=== PATIENT | male | born 1935 | race Caucasian/White ===

== ENCOUNTER 2016-06-09 09:10 | Emergency (ER) | payer OTHER ==
[2016-06-09] MEDS ORDERED: Sodium Chloride 0.9% 1,000 ML PRIMARY IV ONE ×2 (09:12→09:33)
[2016-06-09] MEDS ORDERED: ONDANSETRON 4 MG/2 ML VIAL IVP ONE (09:12)
[2016-06-09] MEDS ORDERED: MECLIZINE 25 MG CHEWABLE TABLET PO ONE (09:12)
--- NOTE | 2016-06-09 09:19 | EKG ---
[address] [address] Measurements Intervals [place] Rate: 79 P: 76 OK: 149 QRS: 66 QRSD: 154 T: 246 QT: 401 QTc: 436 Interpretive Statements SINUS RHYTHM LEFT BUNDLE BRANCH BLOCK Compared to ECG 01/19/2015 10:45:13 No significant changes Electronically Signed On 06-09-16 11:42:51 MDT by Luis Urena [id number]
--- NOTE | 2016-06-09 09:21 | PDOC ---
Syncope/Near-Syncope HPI - General Chief Complaint: Syncope / Near-Syncope Stated Complaint: dizzy Date Seen by Provider: 06/09/16 Time Seen by Provider: 09:10 Source: POSITIVE: Patient Exam Limitations: POSITIVE: No limitations Nurse's Notes Reviewed & Considered: Yes - History of Present Illness Initial Comments: This very pleasant 80-year-old male comes in today with a chief complaint of dizziness. Patient has three-day history of increasing dizziness today is the worst day. 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 I'll it work today he was having difficulty ambulating with episodes of near-syncope and having to sit down to prevent himself from falling. He denies any headache , fever chills or sweats, nausea vomiting or diarrhea, no chest pain or shortness of breath, no cough. He denies any hematuria or dysuria. He denies any rashes. Body Location Affected: REPORTS: Head Timing: REPORTS: Intermittent Duration: <1 week Severity: Severe Quality: REPORTS: Other (Dizziness) Context: REPORTS: Sitting, Standing, Activity Symptoms Prior to Episode: REPORTS: None Character of Event(s): REPORTS: Almost Passed Out Associated Symptoms: REPORTS: None (feels back to nml) Recently seen/treated/hospitalized: No Any Prior Injuries Related to Current Complaint?: No - Patient Home Medications Home Medications: Home Medications Terazosin HCl [Hytrin Cap] 5 mg PO DAILY cap 12/25/13 Fluticasone Propionate [Flonase] 50 mcg INASL BID #1 spr 03/19/14 Aspirin 81 mg PO DAILY tab 12/21/14 Atorvastatin Calcium 1 tab PO DAILY tab 12/21/14 Finasteride 5 mg PO DAILY tab 12/21/14 Metoprolol Succinate 0.5 tab PO DAILY tab 12/21/14 Saw/Vit E/Sod Korina/Lyc/Beta/Pyg [Prostate Health Caplet] 2 each PO QD tab Digoxin 1 tab PO QD tab 07/01/15 Levothyroxine Sodium 1 tab PO DAILY #30 tab 04/21/16 Lisinopril 2.5 mg PO DAILY 06/09/16 Omeprazole 20 mg PO DAILY 06/09/16 - Patient Allergies Allergies/Adverse Reactions: Allergies Allergy/AdvReac Type Severity Reaction Status Date / Time No Known Drug Allergies Allergy NO KNOWN Verified 06/09/16 09:12 ALLERGIES Past Medical History - heen HEENT History: Cataracts Cardiovascular History: Hyperlipidemia Respiratory History: Denies History Gastrointestinal History: Denies History Additional Genitourinary History: ENLARGED PROSTATE/ BPH/ Endocrine History: Hypothyroidism Musculoskeletal History: Back Pain Prosthesis or Implant: No Neurological History: Denies History Blood Disorders: Denies History Psychiatric History: Depression History of Sexually Transmitted Diseases: No History of MDRO: No History of Other Communicable Diseases: No Alcohol Use: Occasionally Substance Use Type: None Previous Surgical History: No Type / Date of Surgery: CATARACT Anesthesia Reactions: No Malignant Hyperthermia: No Significant Family History: No pertinent family hx ROS - Limitations ROS Limitations: No Limitations Constitution: REPORTS: Denies Symptoms Cardiovascular: REPORTS: Denies Cardiac Symptoms Neurological: REPORTS: Dizziness, Difficulty Walking Gastrointestinal: REPORTS: Denies GI Symptoms Endocrine: REPORTS: Denies Symptoms Musculoskeletal: REPORTS: Denies MS Symptoms Genitourinary: REPORTS: Denies Symptoms Eyes: REPORTS: Denies Symptoms ENT: REPORTS: Denies Symptoms Skin: REPORTS: Denies Skin Symptoms Lympathic: REPORTS: Denies Lympathic Symptoms Immunologic: POSITIVE: Denies Symptoms Psychiatric: POSITIVE: Denies Psych Symptoms Syncope / Near-Syncope Exam - General Appearance General Appearance: POSITIVE: Alert, Cooperative, No Acute Distress, No Evidence of Trauma - HEENT HEENT: POSITIVE: Head Inspection Nml, Eyes Inspection Nml, Ears Inspection Nml, Nose Inspection Nml, Oral/Dental Inspect. Nml, Pharynx Inspect. Nml, PERRL, EOMI , Dry Mucous Membranes - Pupil Size Pupil Size: 4 mm: Bilateral - Neck / Back Neck/Back: POSITIVE: Supple, Non-Tender - Respiratory Respiratory: POSITIVE: No Respiratoy Distress, Breath Sounds Normal, No Pleuritic Chest Pain - Cardiovascular Cardiovascular: POSITIVE: Regular Rate and Rhythm, Heart Sounds Normal - Abdomen Abdomen: Soft: (All Quadrants), Normal Bowel Sounds: (All Quadrants), Denies Tenderness: (All Quadrants) - Skin Skin: POSITIVE: Intact, Normal For Race, Warm, Dry, No Rash - Extremities Extremity: Non-Tender: (All Extremities), Normal ROM: (All Extremities), Normal Inspection: (All Extremities) - Neuro / Psych Higher Functions: POSITIVE: Oriented to Person, Oriented to Place, Oriented to Time, Normal Speech, Normal Cognition, Appropriate Mood, Appropriate Affect Cranial Nerves: POSITIVE: Normal As Tested, No Evidence of Acute CVA Cerebellar: POSITIVE: Normal As Tested Syncope/Near-Syncope Progress - Results Reviewed by me Xrays/CTs/US Reviewed by me: Yes Discussed with Radiologist: Yes Lab Results Reviewed: Yes Lab Results:: Laboratory Results 06/09/16 Range/Units 09:39 WBC 5.82 (4.8-10.8) 10^3/uL RBC 4.48 L (4.70-6.10) 10^6/uL Hgb 13.6 L (14.0-18.0) g/dL Hct 41.1 L (42.0-52.0) % MCV 91.7 H (80-90) FL MCH 30.4 (27-31) PG MCHC 33.1 (33-37) g/dL RDW Std Deviation 48.2 (39-50) fL RDW Coeff of Jorge Luis 14.6 H (11.5-14.5) % Plt Count 198 (140-350) 10*3/uL MPV 9.5 (7.4-12.2) FL Immature Gran % (Auto) 0.2 (0-5) % Neut % (Auto) 68.7 (50-80) % Lymph % (Auto) 21.3 (10-50) % [place] % (Auto) 8.1 (5-15) % Eos % (Auto) 1.0 (0-8) % Baso % (Auto) 0.7 (0-1) % Immature Gran # (Auto) 0.01 10*3/UL Neut # (Auto) 4.00 10*3/UL Lymph # (Auto) 1.24 10*3/uL [place] # (Auto) 0.47 (0.3-0.8) 10*3/UL Eos # (Auto) 0.06 10*3/UL Baso # (Auto) 0.04 10*3/UL WBC Morphology Comment Normal morphology (NORM) Plt Morphology Comment Normal morphology (NORM) RBC Morph Comment Normal morphology (NORM) Sodium 140 (135-145) meq/L Potassium 4.7 (3.8-5.2) meq/L Chloride 107 (98-112) meq/L Carbon Dioxide 19 L (23-33) meq/L Anion Gap 14 (5-20) BUN 29 H (7-22) mg/dL Creatinine 1.5 (0.70-1.50) mg/dL Estimated GFR (>60 ml/min/1.73m(2)) BUN/Creatinine Ratio 19.33 (6-20) Glucose 113 H (78-110) mg/dL Calculated Osmolality 296.0 H (267-292) mOsm/kg Calcium 9.3 (8.7-10.7) mg/dL Magnesium 2.0 (1.6-2.4) mg/dL Total Bilirubin 0.9 (0.3-1.2) mg/dL AST 35 (21-57) IU/L ALT 34 (21-72) IU/L Alkaline Phosphatase 103 (38-126) IU/L Total Protein 6.9 (6.1-8.0) g/dL Albumin 4.2 (3.5-4.8) g/dL Globulin 2.7 (2.50-4.10) g/dL Albumin/Globulin Ratio 1.50 (1.3-2.0) mg/g TSH 0.808 (0.2700-4.2000) uIU/mL Free T4 1.82 H (0.93-1.71) ng/dL EKG Interpretation:: POSITIVE: Normal Rate, Abnormal EKG, Unchanged, Previous EKG Reviewed - Patient's Progress Pain Medication Addressed: POSITIVE: Not Applicable Re-examine Time: 11:11 Status: POSITIVE: Improved CVA/Syncope Quality Measure Initiative: POSITIVE: EKG, NIH Stroke Scale (Stroke scale score is 0) - Consult Counseled: POSITIVE: Patient, Family, RE: Lab Results, RE: Radiology Results, RE : DX, RE: Need for F/U Patient Care Time - Estimated PCT Patient Care Time (In Minutes): 30 Vital Signs - Recent Vital Signs Vital Signs: Vital Signs (Last 8 hours) Temp Pulse Pulse Pulse Resp BP BP 06/09/16 11:08 73 104/70 06/09/16 09:27 87 101 H 83/54 06/09/16 09:11 97.3 F 103 H 18 96/54 BP BP Pulse Ox 06/09/16 11:08 93 06/09/16 09:27 61/43 70/48 06/09/16 09:11 93 - VS Reviewed Vital Signs Reviewed: Yes Discharge Clinical Impression: Syncope, Dehydration Discharge Disposition: Discharged to Home Condition: Fair Patient Instructions Given at Discharge: Dehydration (ED), Syncope (ED)
[2016-06-09 09:24] VITALS: RESP 18; TEMP 97.3
[2016-06-09 09:43] LABS: BASOPHILS # (AUTO) 0.04 10*3/UL; BASOPHILS % (AUTO) 0.7 % (0-1); EOSINOPHILS # (AUTO) 0.06 10*3/UL; HEMATOCRIT 41.1 % (42.0-52.0); HEMOGLOBIN 13.6 g/dL (14.0-18.0); LYMPHOCYTES # (AUTO) 1.24 10*3/uL; MEAN CORPUSCULAR HEMOGLOBIN 30.4 PG (27-31); MEAN CORPUSCULAR HGB CONC 33.1 g/dL (33-37); MEAN CORPUSCULAR VOLUME 91.7 FL (80-90); MEAN PLATELET VOLUME 9.5 FL (7.4-12.2); MONOCYTES # (AUTO) 0.47 10*3/UL (0.3-0.8); MONOCYTES % (AUTO) 8.1 % (5-15); NEUTROPHILS % (AUTO) 68.7 % (50-80); PLATELET MORPHOLOGY COMMENT NORMAL MORPHOLOGY (NORM); RBC MORPHOLOGY COMMENT NORMAL MORPHOLOGY (NORM); RED BLOOD COUNT 4.48 10^6/uL (4.70-6.10); WBC MORPHOLOGY COMMENT NORMAL MORPHOLOGY (NORM)
[2016-06-09 09:55] LABS: BUN/CREATININE RATIO 19.33 (6-20); CALCIUM 9.3 mg/dL (8.7-10.7); SERUM ALBUMIN 4.2 g/dL (3.5-4.8)
[2016-06-09 10:28] LABS: FREE T4 (FREE THYROXINE) 1.82 ng/dL (0.93-1.71)
--- NOTE | 2016-06-09 11:07 | DI ---
MRI BRAIN W/O CN,06/09/2016 9:29 AM: Clinical History: Headache, dizziness and slurred speech. Previous Exam: None at this facility. Findings: Multiplanar MR images are obtained through the brain without contrast, and demonstrate diffuse age-re lated volume loss. There is no mass, hemorrhage or midline shift. There is no abnormally restricted diffusion. There are a few scattered areas of increased FLAIR signal within the periventricular white matter. The major vascular flow voids are unremarkable. There is rightward deviation of the bony nasal septum . Intraorbital structures are unremarkable. The paranasal sinuses are unremarkable. Impression: 1. No evidence of acute ischemia. 2. Mild diffuse age-related volume loss.
[2016-06-09 11:55] LABS: BILIRUBIN,URINE NEGATIVE (NEG); COLOR,URINE YELLOW; GLUCOSE, URINE (UA) NEGATIVE (NEG); NITRATE,URINE NEGATIVE (NEG); OCCULT BLOOD,URINE NEGATIVE (NEG); PROTEIN,URINE NEGATIVE (NEG); UROBILINOGEN,URINE 0.2 EU/dL (0.2)
--- NOTE | 2016-06-09 12:00 | DI ---
MRI MRA NECK W/O CN,06/09/2016 9:29 AM: Clinical History: Dizziness Previous Exam: None at this facility. Findings: Multiplanar MR images are obtained through the neck following a 2-D [id number] protocol, and demo nstrate normal-appearing common carotid arteries. The carotid bulbs demonstrates some plaque formatio n with less than 50% stenosis bilaterally involving the proximal internal carotid arteries. The vertebral arteries are normal bilaterally. The external carotid arteries are also grossly normal. The aortic arch is normal. Impression: Approximately 50% stenosis of the proximal internal carotid arteries at the level of the carotid bulb s bilaterally. There is no evidence of acute ischemia within the brain to suggest any acute embolism.
[2016-06-09 12:10] LABS: CLARITY,URINE CLEAR (CLEAR)
[2016-06-09 12:11] LABS: URINE SAMPLE TYPE CLEAN CATCH URINE
== END 2016-06-09 11:50 | disposition home or self-care (01) ==
LOC: ER 09:10
DX: E86.0 Dehydration (principal); R55 Syncope and collapse; R42 Dizziness and giddiness
CPT/HCPCS: 70547; 70551; 80053; 81003; 83735; 84439; 84443; 85025; 93005; 93010; 96374; 99284; J2405; J7030

== ENCOUNTER → 2016-06-15 | Outpatient (CLI) | payer OTHER | LOC: MMPC 09:00 | PROVIDERS: ATTEND Family Medicine | DX: R42 Dizziness and giddiness (principal); K21.9 Gastro-esophageal reflux disease without esophagitis; I25.10 Atherosclerotic heart disease of native coronary artery without angina pectoris | CPT/HCPCS: 99213; G0463 ==

== ENCOUNTER → 2016-10-16 | Outpatient (CLI) | payer OTHER | LOC: LAB 08:03 | PROVIDERS: ATTEND Urology | DX: C61 Malignant neoplasm of prostate (principal) | CPT/HCPCS: 36415; 84153 ==

== ENCOUNTER 2018-08-15 10:41 | Observation (INO) ==
[2018-08-15] MEDS ORDERED: ONDANSETRON 4 MG/2 ML VIAL IVP ONE (11:07)
[2018-08-15] MEDS ORDERED: Lactated Ringers 1,000 ML PRIMARY IV ONE ×2 (11:07→11:08)
--- NOTE | 2018-08-15 11:10 | PDOC ---
Abdomen/Flank HPI - General Chief Complaint: Abdomen Pain Stated Complaint: abd pain Date Seen by Provider: 08/15/18 Time Seen by Provider: 10:55 Source: POSITIVE: Patient, Spouse Exam Limitations: POSITIVE: No limitations Nurse's Notes Reviewed & Considered: Yes - Record Incomplete - History of Present Illness Initial Comments: 82 yo male with complaint of dizziness since yesterday. Also reports nausea, vomiting and diarrhea. No vomiting today just nauseated. States had about 2 episodes of emesis and diarrhea in past 24 hours. Denies blood in stool/vomitus. Denies CP. States he has been having increase SOB lately. Denies fevers/chills. Denies rhinorrhea/congestion/earache/sore throat. - Patient Home Medications Home Medications: Home Medications Terazosin HCl [Hytrin Cap] 5 mg PO DAILY cap 12/25/13 Fluticasone Propionate [Flonase] 50 mcg INASL BID #1 spr 03/19/14 Aspirin 81 mg PO DAILY tab 12/21/14 Atorvastatin Calcium 1 tab PO DAILY tab 12/21/14 Finasteride 5 mg PO DAILY tab 12/21/14 Metoprolol Succinate 0.5 tab PO DAILY tab 12/21/14 Saw/Vit E/Sod Korina/Lyc/Beta/Pyg [Prostate Health Caplet] 2 ea PO QD tab 12/21/14 Digoxin 1 tab PO QD tab 07/01/15 omeprazole 20 mg capsule,delayed release 20 mg PO DAILY #90 cap 07/23/17 ipratropium bromide 0.03 % nasal spray See Rx Instructions .ROUTE .COMPLEX #30 milliliter 03/29/18 lactobacillus combination no.9 4 billion cell capsule 4,000 mmu cells PO QDAY #30 cap 04/10/18 levothyroxine 88 mcg tablet 88 mcg PO DAILY #90 tab 08/06/18 lisinopril 2.5 mg tablet 2.5 mg PO DAILY #90 tab 08/06/18 - Patient Allergies Allergies/Adverse Reactions: Allergies Allergy/AdvReac Type Severity Reaction Status Date / Time No Known Drug Allergies Allergy NO KNOWN Verified 08/15/18 09:46 ALLERGIES Past Medical History - heen HEENT History: Cataracts Cardiovascular History: CAD, Hyperlipidemia, Other (please comment) Additional Cardiovasular History: PATIENT HAD A 3 WAY BYPASS 4 YEARS AGO Respiratory History: Denies History Gastrointestinal History: Denies History Additional Genitourinary History: ENLARGED PROSTATE/ BPH/Prostrate CA Endocrine History: Hypothyroidism Musculoskeletal History: Back Pain Prosthesis or Implant: No Neurological History: Denies History Blood Disorders: Denies History Psychiatric History: Depression History of Sexually Transmitted Diseases: No Cancer Treatment / Date(s) of Treatment: FEMALE HORMONE In Past Year Been Physically Harmed or Verbally Threatened: No History of MDRO: No History of Other Communicable Diseases: No Tobacco Use: Never Smoker Alcohol Use: Occasionally In the Past 12 Months, Have Used or Abuse Any Substance: None Previous Surgical History: No Type / Date of Surgery: CATARACT Anesthesia Reactions: No Malignant Hyperthermia: No Significant Family History: No pertinent family hx ROS - Limitations ROS Limitations: No Limitations Constitution: REPORTS: Chills. DENIES: Fever Cardiovascular: REPORTS: Denies Cardiac Symptoms Respiratory: REPORTS: Denies Resp Symptoms Neurological: REPORTS: Headache, Dizziness. DENIES: Numbness, Fainting Gastrointestinal: REPORTS: Abdominal Pain, Nausea, Vomitting, Diarrhea Endocrine: REPORTS: Fatigue Musculoskeletal: REPORTS: Denies MS Symptoms Genitourinary: REPORTS: Denies Symptoms Eyes: REPORTS: Denies Symptoms ENT: REPORTS: Denies Symptoms Skin: REPORTS: Denies Skin Symptoms Lympathic: REPORTS: Denies Lympathic Symptoms Immunologic: POSITIVE: Denies Symptoms Psychiatric: POSITIVE: Denies Psych Symptoms Abdominal/Flank Pain PE - General Appearance General Appearance: POSITIVE: Alert, Cooperative, Mild Distress - HEENT HEENT: POSITIVE: Head Inspection Nml, Eyes Inspection Nml, Nose Inspection Nml, Oral/Dental Inspect. Nml, Pharynx Inspect. Nml, PERRL, EOMI, Dry Mucous Membranes - Neck Neck: POSITIVE: Normal Inspection, No Apparent Injury - Respiratory Respiratory: POSITIVE: No Respiratory Distress, Breath Sounds Normal, Chest Non- Tender - Cardiovascular Cardiovascular: POSITIVE: Regular Rate and Rhythm, Heart Sounds Normal, Equal Pulses, Strong Pulses Peripheral Pulses: Radial (R): 2+, Radial (L): 2+, Dorsalis-pedis (R): 2+, Dorsalis-pedis (L): 2+ - Chest Chest: POSITIVE: Non Tender. NEGATIVE: Ecchymosis, Abrasion, Laceration - Abdomen Abdomen: Soft: (All Quadrants), Normal Bowel Sounds: (All Quadrants), Denies Tenderness: (RLQ), (LLQ), No Splenomegaly: (All Quadrants), No Hepatomegaly: (All Quadrants), No Guarding: (All Quadrants), No Rebound: (All Quadrants), No Palpable Pulse: (All Quadrants), No Palpabale Mass: (All Quadrants), No Distention: (All Quadrants), Tenderness Noted: (RUQ), (LUQ) (epigastric) - Back Back: POSITIVE: Normal Inspection. NEGATIVE: CVA Tenderness (R), CVA Tenderness (L) - Skin Skin: POSITIVE: Intact, Normal For Race, Warm, Dry, No Rash - Extremities Extremity: Non-Tender: (All Extremities), Normal ROM: (All Extremities), Normal Inspection: (All Extremities) - Neurological Neurological: POSITIVE: Affect Apporpriate, Oriented X3, lapeler Normal As Tested, Motor Normal, Sensation Normal - Psychological Psychiatric: POSITIVE: Affect Appropriate, Mood Appropriate Abdomen Progress - Results Reviewed by me Xrays/CTs/US Reviewed by me: Yes Discussed with Radiologist: No Lab Results Reviewed by Me: Yes (lipase elevated at 530) CBC and BMP: 08/15/18 10:50 08/15/18 10:50 EKG Interpreted/Reviewed By Me:: Yes (EKG done in outpatient clinic) - Patient's Progress Pain Medication Addressed: POSITIVE: Not Applicable Re-Examine Comment: Patient was noted to be hypoxic into upper 70s while sleeping. He was placed on oxygen. Will obtain portable CXR due to acute hypoxia and earlier complaint of dyspnea. Re-Examine Comment: Patient feels better after two liters of fluid in regards to his dizziness but is still having pain. CT images show dilation of common bile duct as well as dilation of pancreatic duct. Lipase elevated. No stones seen on CT imaging. Will give small dose of morphine for pain. Re-Examine Comment: Discussed case with Dr. Sherman, hospitalist, who accepted the patient for admission. Patient will be admitted to medical floor in stable and unchanged condition. MDM / ED Course: 82 yo male presents with complaint of nausea, vomiting, diarrhea, abdominal pain and dizziness. IV line was established by nursing staff. Patient was found to be hypotensive and was given a bolus of LR. Orthostatic vital signs obtained and noted to be positive for blood pressure and symptoms. Will obtain serum labs, urine labs and CT of abdomen/pelvis. Patient Care Time - Estimated PCT Patient Care Time (In Minutes): 65 Vital Signs - Recent Vital Signs Vital Signs: Vital Signs (Last 8 hours) Temp Pulse Resp BP Pulse Ox 08/15/18 10:51 96.5 F L 87 18 71/57 95 - VS Reviewed Vital Signs Reviewed: Yes Discharge Clinical Impression: Abdominal pain, Nausea and vomiting, Diarrhea, Pancreatitis, acute, Dehydration, Hypotension due to hypovolemia, Orthostatic dizziness Discharge Disposition: Admit to Inpatient Condition: Fair Patient Problem(s) Reviewed: Yes Care Transferred To: Dr. Sherman Date Decision to Admit to Inpatient: 08/15/18 Time Decision to Admit to Inpatient: 13:01
[2018-08-15 11:12] LABS: BASOPHILS # (AUTO) 0.03 10*3/UL; BASOPHILS % (AUTO) 0.3 % (0-1); EOSINOPHILS # (AUTO) 0.05 10*3/UL; EOSINOPHILS % (AUTO) 0.5 % (0-8); Hemoglobin [HGB] 13.8 g/dL (14.0-18.0); LYMPHOCYTES # (AUTO) 3.11 10*3/uL; MEAN CORPUSCULAR HGB CONC 33.7 g/dL (33-37); MEAN CORPUSCULAR VOLUME 92.1 FL (80-90); MEAN PLATELET VOLUME 9.8 FL (7.4-12.2); MONOCYTES # (AUTO) 0.81 10*3/UL (0.3-0.8); MONOCYTES % (AUTO) 8.1 % (5-15); NEUTROPHILS # (AUTO) 5.96 10*3/UL; NEUTROPHILS % (AUTO) 59.7 % (50-80); RED BLOOD COUNT 4.45 10^6/uL (4.70-6.10)
[2018-08-15 11:13] LABS: PLATELET MORPHOLOGY COMMENT NORMAL MORPHOLOGY (NORM); RBC MORPHOLOGY COMMENT NORMAL MORPHOLOGY (NORM); WBC MORPHOLOGY COMMENT NORMAL MORPHOLOGY (NORM)
[2018-08-15 11:18] LABS: BLOOD UREA NITROGEN 26 mg/dL (7-22); LIPASE 530 IU/L (23-300); SERUM ALBUMIN 4.2 g/dL (3.5-4.8)
--- NOTE | 2018-08-15 12:05 | DI ---
AP CHEST X-RAY, 08/15/2018 11:26 AM : Clinical History: Low O2 saturation. Previous Exam: 08/19/2012. Comparison Exam: CT chest scan with contrast from 10/01/2017. Soft Tissues: No acute soft tissue abnormality. Status post CABG. Bones: Normal. Heart: Mild cardiomegaly with increased prominence of the right heart contour since the last exam. Th e azygos vein is dilated and the vascular pedicle with has increased. There is reversal of flow to th e upper lobes indicating pulmonary venous hypertension. Lungs: No infiltrates. Discoid atelectasis in the left costophrenic angle. Effusion(s): None. Mediastinum: The pulmonary outflow tract silhouette is more prominent than on the earlier chest x-ray but similar to the CT scan from 2018. The hilar vessels do not show definite pulmonary arterial hype rtension. Nodules: No pulmonary nodules. Readin. No acute infiltrate or effusion. 2. Increased vascular pedicle width with dilatation of of the azygos vein and increased prominence o f the lateral wall of the right ventricle suggest this patient may have right heart failure. The prio r CT scan showed marked tricuspid insufficiency. There is pulmonary venous hypertension without evide nce of interstitial or alveolar pulmonary edema.
--- NOTE | 2018-08-15 12:26 | DI ---
CT ABDOMEN SCAN WITH IV CONTRAST, 08/15/2018 11:07 AM : Clinical History: Abdominal pain. Nausea. Vomiting. Diarrhea. Previous Exam: 08/27/2017 IV Contrast: 55 mL of Ultravist 370. Oral Contrast: No oral contrast ordered. Rectal Contrast: No rectal contrast ordered. Lungs: No infiltrate or effusion. ON are present indicating bullous emphysema. Calcifications are pre sent in the aortic valve leaflets. Status post CABG. Liver: Normal. Gallbladder: Grossly normal. Proximal common bile duct is dilated at 8-9 mm. The distal common bile d uct in the head of the pancreas measures 5 mm. Adrenal Glands: Normal. Spleen: Mild splenomegaly. Pancreas: Normal appearing pancreas but there is dilatation of the pancreatic duct measuring 3 mm. No mass is seen in the head of the pancreas. Kidneys: Normal size, shape, position and contour. No hydronephrosis or hydroureter. No renal or uret eral calculi. Masses: None. Lymph Nodes: Normal. Ascites: No ascites. Free Air: None. Spine: Normal lower thoracic and lumbar spine. READIN. The liver and gallbladder appear normal but the common duct is dilated at 9 mm proximally and everett sures 5 mm in the head of the pancreas. The pancreas is normal but the pancreatic duct is mildly dila thom at 3 mm. These are new findings since the study from 08/27/2017. 2. Mild splenomegaly. CT PELVIS SCAN WITH IV CONTRAST, 08/15/2018 11:07 AM: Clinical History: See above. Previous Exam: 08/27/2017. Contrast: Same bolus used for CT scans of the abdomen. Masses: No masses or enhancing lesions. Ascites: None. Free Air: None. Lymph Nodes: No adenopathy. Appendix: Normal. Small Bowel: Normal small bowel, terminal ileum, and ileocecal valve. Colon: Normal. Colon is completely decompressed. No evidence of colitis or ischemic changes to the co valerie. Bladder: Normal. Hernias: None. Bony Pelvis: Normal sacrum, pelvic bones, and hips. READING: Normal CT scan of the pelvis with IV contrast.
[2018-08-15 14:17] LABS: BILIRUBIN,URINE NEGATIVE (NEG); CLARITY,URINE CLEAR (CLEAR); COLOR,URINE YELLOW (Y); GLUCOSE, URINE (UA) NEGATIVE (NEG); OCCULT BLOOD,URINE NEGATIVE (NEG); PH,URINE 5.5 (5.0-8.5); PROTEIN,URINE NEGATIVE (NEG); UROBILINOGEN,URINE 0.2 EU/dL (0.2)
[2018-08-15 14:24] LABS: RBC,URINE 0 /hpf; SQUAMOUS EPITHELIAL CELL,UR RARE; URINE SAMPLE TYPE CLEAN CATCH URINE; WBC,URINE 0-1
--- NOTE | 2018-08-15 15:07 | DI ---
GALLBLADDER AND LIVER ULTRASOUND, 08/15/2018 12:58 PM: Clinical History: Abdominal pain. Previous Exam: None at this facility. Technique: Right upper quadrant scanned in multiple projections with Color Doppler ultrasound. Liver Texture: Normal sonographic texture. Liver Size: Normal. 123 mm. Gallbladder: Moderately distended. Multiple 2 mm spherical echogenic foci are present in the dependen t portion of the gallbladder consistent with small gallstones or cholesterol flakes. Normally, these should pass readily through the sphincter of [place]. Normal gallbladder wall thickness. Negative Carmela y's sign. Common Bile Duct: 6 mm. In the limited areas of the common duct that was visible, no common duct ston e is seen. Pancreas: Normal head, neck, and proximal body. Right Kidney: Normal right kidney. IVC and Aorta: Normal IVC and mid and distal aorta. The proximal portion of the aorta is obscured by gas. READIN. Cholelithiasis. Small 2 mm bright echoes are visible in the gallbladder. Small cholesterol flakes cannot be excluded. They should theoretically pass through the common duct sphincter. There is no Mu rphy's sign. The common bile duct is dilated at 6 mm without evidence of a common duct stone. 2. The liver, right kidney, IVC, and limited views of the aorta and pancreas are normal.
[2018-08-15] MEDS ORDERED: ONDANSETRON 4 MG/2 ML VIAL IVP PRN (15:30)
[2018-08-15] MEDS ORDERED: LIDOCAINE W/ SODIUM BICARB 0.5 ML SYR SUBD PRN (15:30)
--- NOTE | 2018-08-15 15:35 | PDOC ---
HPI - History of Present Illness Date of Service: 08/15/18 Time of Service: 15:30 Chief Complaint: Nausea, vomiting and diarrhea for a week. dizziness for a week and also abdominal pain. History of Present Illness: This is an 82 years old male with medical history significant for history of coronary artery disease with previous CABG, history of systolic dysfunction ejection fraction 40%, history of prostate cancer on hormonal treatment said he didn't feel well last week after he ate some noodles and started to have vomiting, diarrhea and epigastric pain. The pain was constant for few days. Rated about 5-6 out of 10. He vomited yesterday had also loose stool yesterday today went to the urgent care as he's been feeling dizzy. From the urgent clinic was sent to the ER. Was noted that he was hypotensive in the ER was given some fluid and was admitted. Did have a CT of the abdomen which showed dilated common bile duct ultrasound of the abdomen showed cholelithiasis duct about 6 mm. Currently feels better no pain no nausea. Past Medical History Medical History: 1. History of hypothyroidism. 2. History of coronary artery disease with previous CABG in 2017. 3. History of systolic dysfunction ejection fraction 35-40%. 4. History of prostate cancer on hormonal treatment. 5. History of GERD Surgical History: 1. History of CABG. 2. History of inguinal hernia repair Family History: Reviewed an Not Pertinent Past Social History: Doesn't smoke, doesn't drink no drugs. Tobacco Use: Never Smoker In the Past 12 Months, Have Used or Abuse Any of the Following Substance: None Medication / Allergies Home Medications: Home Medications Medication Instructions Recorded Confirmed Terazosin HCl [Hytrin Cap] 5 mg PO DAILY cap 12/25/13 08/15/18 Fluticasone Propionate [Flonase] 50 mcg INASL BID #1 spr 03/19/14 08/15/18 Aspirin 81 mg PO DAILY tab 12/21/14 08/15/18 Atorvastatin Calcium 1 tab PO DAILY tab 12/21/14 08/15/18 Finasteride 5 mg PO DAILY tab 12/21/14 08/15/18 Metoprolol Succinate 0.5 tab PO DAILY tab 12/21/14 08/15/18 Saw/Vit E/Sod [place]/Lyc/Beta/Pyg 2 ea PO QD tab 12/21/14 08/15/18 [Prostate Health Caplet] Digoxin 1 tab PO QD tab 07/01/15 08/15/18 omeprazole 20 mg capsule,delayed 20 mg PO DAILY #90 cap 07/23/17 08/15/18 release ipratropium bromide 0.03 % nasal See Rx Instructions .ROUTE 03/29/18 08/15/18 spray .COMPLEX #30 milliliter lactobacillus combination no.9 4 4,000 mmu cells PO QDAY #30 cap 04/10/18 08/15/18 billion cell capsule levothyroxine 88 mcg tablet 88 mcg PO DAILY #90 tab 08/06/18 08/15/18 lisinopril 2.5 mg tablet 2.5 mg PO DAILY #90 tab 08/06/18 08/15/18 Allergies/Adverse Reactions: Allergies Allergy/AdvReac Type Severity Reaction Status Date / Time No Known Drug Allergies Allergy NO KNOWN Verified 08/15/18 09:46 ALLERGIES Review of Systems - Review of Systems All Systems: Reviewed & No Additional Complaints Except as Stated Exam - Vitals Vital Signs: Vital Signs Temperature 97.4 F Temperature Source Oral Pulse Rate [Pulse Oximeter] 70 Pulse Rate [Standing] 87 Pulse Rate [Sitting] 86 Pulse Rate [Lying] 79 Respiratory Rate 16 Blood Pressure [Standing] 76/54 Blood Pressure [Sitting] 105/55 Blood Pressure [Lying] 112/55 Blood Pressure [Left Arm] 126/46 Pulse Ox 100 Oxygen Flow Rate 1 Oxygen Delivery Method Nasal Cannula Height 5 ft 5 in Weight 129 lb 4 oz - General General Appearance: No Acute Distress, Cooperative - Head Head Exam: Normal Inspection - Eye Eye Exam: POSITIVE: Normal Appearance - ENT ENT Exam: POSITIVE: Normal Exam - Neck Neck Exam: Normal Inspection - Respiratory Respiratory Exam: POSITIVE: Clear to Auscultation - Bilaterally - Cardiovascular Cardiovascular Exam: POSITIVE: RRR - GI/Abdominal GI/Abdominal Exam: POSITIVE: Normal Bowel Sounds, Non Tender, Non Distended, Soft, No Organomegaly - Rectal Rectal Exam: POSITIVE: Deferred - External Exam: POSITIVE: Deferred - Extremities Extremities Exam: POSITIVE: Normal Inspection - Back Back Exam: POSITIVE: Normal Inspection - Neurological Neurological Exam: POSITIVE: Alert, Oriented x 3, CN II-XII Intact, No Facial Droop, Speech Intact / Clear, Moves All Extremities Equally - Psychiatric Psychiatric Exam: POSITIVE: Normal Affect Results - Labs CBC and BMP: 08/15/18 10:50 08/15/18 10:50 - Imaging Status: Report Reviewed by Me (CT abdomen 1. The liver and gallbladder appear normal but the common duct is dilated at 9 mm proximally and measures 5 mm in the head of the pancreas. The pancreas is normal but the pancreatic duct is mildly dilated at 3 mm. These are new findings since the study from 08/27/2017. 2. Mild splenomegaly. Chest X ray 1. No acute infiltrate or effusion. 2. Increased vascular pedicle width with dilatation of of the azygos vein and increased prominence of the lateral wall of the right ventricle suggest this patient may have right heart failure. The prior CT scan showed marked tricuspid insufficiency. There is pulmonary venous hypertension without evidence of interstitial or alveolar pulmonary edema.) Assessment and Plan - Patient Problems (1) Dehydration Current Visit: Yes Status: Acute Comment: he is mildly dehydrated will give him some fluids cautiously and repeat his labs in the morning. We'll watch him overnight. Code(s): E86.0 - Dehydration (2) Elevated lipase Current Visit: Yes Status: Acute Comment: either there is a pancreatitis or this is secondary to gastroenteritis. There is a evidence of some gallstones on the ultrasound. I think will repeat labs in am. will put him on law fat diet now. Code(s): R74.8 - Abnormal levels of other serum enzymes (3) Benign prostatic hyperplasia Current Visit: No Status: Acute Onset Date: 07/05/11 Comment: Continue finasteride will hold terazosin tonight. Code(s): N40.0 - Benign prostatic hyperplasia without lower urinary tract symptoms (4) Coronary artery disease involving [place] coronary artery of [place] heart without angina pectoris Current Visit: No Status: Acute Onset Date: 06/15/16 Comment: will continue with aspirin, betablocker and lipitor. will hold lisinopril for now. Code(s): I25.10 - Atherosclerotic heart disease of [place] coronary artery without angina pectoris
[2018-08-15] MEDS: Lactated Ringers 1,000 ML PRIMARY IV SCH (16:03)
[2018-08-15] MEDS ORDERED: ATORVASTATIN 40 MG TABLET PO SCH (21:00)
[2018-08-15] MEDS: FLUTICASONE PROPIONATE 16 GRAM (120 SPRAYS / BOTTLE) ENOS SCH (21:45)
[2018-08-16 04:06] VITALS: O2SAT 92
[2018-08-16 04:54] LABS: BASOPHILS # (AUTO) 0.02 10*3/UL; BASOPHILS % (AUTO) 0.3 % (0-1); EOSINOPHILS # (AUTO) 0.15 10*3/UL; EOSINOPHILS % (AUTO) 2.2 % (0-8); Hematocrit [HCT] 36.6 % (42.0-52.0); Hemoglobin [HGB] 11.9 g/dL (14.0-18.0); LYMPHOCYTES # (AUTO) 3.51 10*3/uL; MEAN CORPUSCULAR HEMOGLOBIN 30.6 PG (27-31); MEAN CORPUSCULAR HGB CONC 32.5 g/dL (33-37); MEAN CORPUSCULAR VOLUME 94.1 FL (80-90); MEAN PLATELET VOLUME 9.6 FL (7.4-12.2); MONOCYTES # (AUTO) 0.52 10*3/UL (0.3-0.8); MONOCYTES % (AUTO) 7.6 % (5-15); NEUTROPHILS # (AUTO) 2.62 10*3/UL; NEUTROPHILS % (AUTO) 38.4 % (50-80); RED BLOOD COUNT 3.89 10^6/uL (4.70-6.10)
[2018-08-16 05:22] LABS: BLOOD UREA NITROGEN 20 mg/dL (7-22); BUN/CREATININE RATIO 22.22 (6-20); LIPASE 532 IU/L (23-300)
[2018-08-16] MEDS ORDERED: LEVOTHYROXINE 88 MCG TABLET PO SCH (05:30)
[2018-08-16 06:24] LABS: PLATELET MORPHOLOGY COMMENT NORMAL MORPHOLOGY (NORM); RBC MORPHOLOGY COMMENT NORMAL MORPHOLOGY (NORM); WBC MORPHOLOGY COMMENT NORMAL MORPHOLOGY (NORM)
[2018-08-16 07:12] VITALS: BP 117/61; RESP 12; TEMP 97.5
[2018-08-16] MEDS ORDERED: ASPIRIN 81 MG (BABY) CHEWABLE TABLET PO SCH (09:00)
[2018-08-16] MEDS ORDERED: FINASTERIDE 5 MG TABLET PO SCH (09:00)
[2018-08-16] MEDS ORDERED: OMEPRAZOLE 20 MG CAPSULE PO SCH (09:00)
[2018-08-16] MEDS ORDERED: METOPROLOL SUCCINATE 25 MG SR 24H TABLET PO SCH (09:00)
[2018-08-16] MEDS ORDERED: DIGOXIN 125 MCG TABLET PO SCH (09:00)
[2018-08-16] MEDS: FLUTICASONE PROPIONATE 16 GRAM (120 SPRAYS / BOTTLE) ENOS SCH (09:18)
[2018-08-16] MEDS: Lactated Ringers 1,000 ML PRIMARY IV SCH (09:24)
[2018-08-16] MEDS ORDERED: MIDAZOLAM 5 MG/1 ML ONE (09:33)
[2018-08-16] MEDS ORDERED: fentaNYL Inj 100 MCG/2 ML VIAL ONE (09:34)
[2018-08-16] MEDS ORDERED: LIDOCAINE MPF 2% - 5 ML (20 MG/1 ML) ONE (09:34)
[2018-08-16] MEDS ORDERED: BUPivacaine Inj 0.5% PF (5mg/ml) 30ml vial ONE (09:34)
--- NOTE | 2018-08-16 10:45 | DCSUMMARY ---
Hospitalization Summary Admit Date: 08/15/2018 Discharge Date: 08/16/18 Hospital Course: Discharge diagnoses 1. Episode of vomiting, diarrhea and abdominal pain resolved, question gastroenteritis 2. Elevated lipase either secondary to the gastroenteritis or secondary to gallstone pancreatitis 3. Cholelithiasis 4. Dilatation of the common bile duct at 6 mm without evidence of common duct stone 5. Postural hypotension probably secondary to dehydration 6. History of hypothyroidism 7. History of coronary artery disease with previous CABG in 2017 8. History of systolic dysfunction ejection fraction at 540% 8. History of prostate cancer on hormonal treatment 9. History of GERD Hospital course This is an 82 years old male with medical history significant for history of coronary artery disease with previous CABG, history of systolic dysfunction ejection fraction 40%, history of prostate cancer on hormonal treatment he said he didn't feel well last week after he ate some noodles and he Started to have vomiting, diarrhea and epigastric pain. The pain was constant for a few days. Rated about 5-6 out of 10. He vomited the day before admission and had loose stool then on the day of admission went to urgent care as he was feeling dizzy. From there he was sent to the ER. It was noted that he was hypotensive in the ER he was given some fluid and was admitted. He Did have a CT of the abdomen which showed the dilatation of the common bile duct. Ultrasound of the abdomen showed cholelithiasis, duct size was about 6 mm. By the time I saw the patient he was feeling better his abdominal pain seemed to be much improved. He was not dizzy. We gave him some fluid overnight. His lipase was elevated at 530. potential explanation for symptoms include he had an episode of gastroenteritis and the elevation in the lipase is secondary to that or the other explanation is that he had a mild episode of pancreatitis secondary to gallstones that probably passed with the duct. I did put him on low-fat diet and he tolerated the diet with no worsening pain no vomiting no nausea. The Next Day he Was Still Feeling the Same with no significant pain Abdominal Exam Was Nontender He Did Walk around He Was Not Dizzy Blood Pressure Was Acceptable. We Thought He Could Be Discharged Home and Follow-Up with His Primary in Addition He Needs Follow-Up with Dr. Isaacs Because of the Gallstones. I Did Discuss That with Dr. Isaacs. I did hold his lisinopril on discharge this can be followed up with her on with his primary. Laboratory Results 08/15/18 08/16/18 08/16/18 14:04 04:10 04:10 WBC 6.83 RBC 3.89 L Hgb 11.9 L Hct 36.6 L MCV 94.1 H MCH 30.6 MCHC 32.5 L RDW Std Deviation 43.4 RDW Coeff of [place] 13.0 Plt Count 198 MPV 9.6 Immature Gran % (Auto) 0.1 Neut % (Auto) 38.4 L Lymph % (Auto) 51.4 H [place] % (Auto) 7.6 Eos % (Auto) 2.2 Baso % (Auto) 0.3 Immature Gran # (Auto) 0.01 Neut # (Auto) 2.62 Lymph # (Auto) 3.51 [place] # (Auto) 0.52 Eos # (Auto) 0.15 Baso # (Auto) 0.02 WBC Morphology Comment Normal morphology Plt Morphology Comment Normal morphology RBC Morph Comment Normal morphology Sodium 138 Potassium 4.7 Chloride 108 Carbon Dioxide 23 Anion Gap 7 BUN 20 Creatinine 0.9 BUN/Creatinine Ratio 22.22 H Glucose 88 Calculated Osmolality 287.0 Calcium 8.8 Total Bilirubin 0.4 AST 19 L ALT 23 Alkaline Phosphatase 101 Total Protein 5.1 L Albumin 3.0 L Globulin 2.1 L Albumin/Globulin Ratio 1.40 Lipase 532 H Ur Collection Type Clean catch urine Urine Color Yellow Urine Clarity Clear Urine pH 5.5 Ur Specific [place] 1.032 Urine Protein Negative Urine Glucose (UA) Negative Urine Ketones 15 Urine Occult Blood Negative Urine Nitrate Negative Urine Bilirubin Negative Urine Urobilinogen 0.2 Ur Leukocyte Esterase Trace Urine RBC 0 Urine WBC 0-1 Ur Squamous Epith Cells Rare Ur Renal Epithelial Cell None Urine Crystals None Urine Bacteria None Urine Casts None Urine Mucus Rare Urine Trichomonas None Urine Yeast None Ur Culture Indicated? Culture not set Digoxin 08/16/18 04:10 WBC RBC Hgb Hct MCV MCH MCHC RDW Std Deviation RDW Coeff of [place] Plt Count MPV Immature Gran % (Auto) Neut % (Auto) Lymph % (Auto) [place] % (Auto) Eos % (Auto) Baso % (Auto) Immature Gran # (Auto) Neut # (Auto) Lymph # (Auto) [place] # (Auto) Eos # (Auto) Baso # (Auto) WBC Morphology Comment Plt Morphology Comment RBC Morph Comment Sodium Potassium Chloride Carbon Dioxide Anion Gap BUN Creatinine BUN/Creatinine Ratio Glucose Calculated Osmolality Calcium Total Bilirubin AST ALT Alkaline Phosphatase Total Protein Albumin Globulin Albumin/Globulin Ratio Lipase Ur Collection Type Urine Color Urine Clarity Urine pH Ur Specific [place] Urine Protein Urine Glucose (UA) Urine Ketones Urine Occult Blood Urine Nitrate Urine Bilirubin Urine Urobilinogen Ur Leukocyte Esterase Urine RBC Urine WBC Ur Squamous Epith Cells Ur Renal Epithelial Cell Urine Crystals Urine Bacteria Urine Casts Urine Mucus Urine Trichomonas Urine Yeast Ur Culture Indicated? Digoxin 0.6 L Discharge instruction Diet regular Activity as tolerated Medications Current Medication(s) Medication Instructions Recorded Confirmed Type Terazosin HCl [Hytrin] 5 mg PO DAILY cap 12/25/13 08/15/18 History Fluticasone Propionate [Flonase] 50 mcg INASL BID #1 spr 03/19/14 08/15/18 History Aspirin 81 mg PO DAILY tab 12/21/14 08/15/18 History Atorvastatin Calcium 1 tab PO DAILY tab 12/21/14 08/15/18 History Finasteride 5 mg PO DAILY tab 12/21/14 08/15/18 History Metoprolol Succinate 0.5 tab PO DAILY tab 12/21/14 08/15/18 History Saw/Vit E/Sod [place]/Lyc/Beta/Pyg 2 ea PO QD tab 12/21/14 08/15/18 History [Prostate Health Caplet] Digoxin 1 tab PO QD tab 07/01/15 08/15/18 History omeprazole 20 mg capsule,delayed 20 mg PO DAILY #90 cap 07/23/17 08/15/18 Rx release ipratropium bromide 0.03 % nasal See Rx Instructions .ROUTE 03/29/18 08/15/18 Rx spray .COMPLEX #30 milliliter lactobacillus combination no.9 4 4,000 mmu cells PO QDAY #30 cap 04/10/18 08/15/18 Rx billion cell capsule levothyroxine 88 mcg tablet 88 mcg PO DAILY #90 tab 08/06/18 08/15/18 Rx Follow-up with PCP in 1-2 weeks Condition at discharge was stable for discharge Exam - Vitals Vital Signs: Vital Signs Temperature 97.5 F Temperature Source Temporal Artery Scan Pulse Rate [Pulse Oximeter] 79 Pulse Rate [Standing] 87 Pulse Rate [Sitting] 86 Pulse Rate [Lying] 79 Pulse Rate 82 Respiratory Rate 12 Blood Pressure [Standing] 76/54 Blood Pressure [Sitting] 105/55 Blood Pressure [Lying] 112/55 Blood Pressure [Right Arm] 117/61 Blood Pressure [Left Arm] 109/58 Pulse Ox 92 Oxygen Flow Rate 1 Oxygen Delivery Method Nasal Cannula Height 5 ft 5 in Weight 125 lb 9.6 oz - General General Appearance: No Acute Distress, Cooperative - Head Head Exam: Normal Inspection - Eye Eye Exam: POSITIVE: Normal Appearance - ENT ENT Exam: POSITIVE: Normal Exam - Neck Neck Exam: Normal Inspection - Respiratory Respiratory Exam: POSITIVE: Clear to Auscultation - Bilaterally - Cardiovascular Cardiovascular Exam: POSITIVE: RRR - GI/Abdominal GI/Abdominal Exam: POSITIVE: Normal Bowel Sounds, Non Tender, Non Distended, Soft, No Organomegaly - Rectal Rectal Exam: POSITIVE: Deferred - External Exam: POSITIVE: Deferred - Extremities Extremities Exam: POSITIVE: Normal Inspection - Back Back Exam: POSITIVE: Normal Inspection - Neurological Neurological Exam: POSITIVE: Alert, Oriented x 3, CN II-XII Intact, No Facial Droop, Speech Intact / Clear, Moves All Extremities Equally - Psychiatric Psychiatric Exam: POSITIVE: Normal Affect - Integumentary Integumentary Exam: POSITIVE: Normal Color Patient Problems - Patient Problem List (1) Dehydration Status: Acute Code(s): E86.0 - Dehydration Category: Medical (2) Elevated lipase Status: Acute Code(s): R74.8 - Abnormal levels of other serum enzymes Category: Medical (3) Benign prostatic hyperplasia Status: Acute Onset Date: 07/05/11 Code(s): N40.0 - Benign prostatic hyperplasia without lower urinary tract symptoms Category: Medical (4) Coronary artery disease involving [place] coronary artery of [place] heart without angina pectoris Status: Acute Onset Date: 06/15/16 Code(s): I25.10 - Atherosclerotic heart disease of [place] coronary artery without angina pectoris Category: Medical
== END 2018-08-16 11:42 | disposition home or self-care (01) ==
LOC: ER 10:41 → MED/SURG 10:41
PROVIDERS: ADMIT Internal Medicine; ATTEND Internal Medicine